=== PATIENT | male | born 1945 | race Caucasian/White ===

== ENCOUNTER 2018-03-09 10:20 | Emergency (ER) | payer MEDICARE ==
--- OUTSIDE RECORDS SUMMARY | 2018-03-09 10:29 | XMS REPORT ---
:1945 External Reference #:[id number] Author Organization [facility] Address [address] [place] [address] [place] [address] Phone [phone] Care Team Providers Name Role Phone Ric Leos MD Care Team Information Cigarette Tipper Unavailable Scott Feng MD Primary Care Physician Unavailable Payers Type Date Identification Numbers Payment Provider Subscriber Medicare Primary Policy Number: [id number] Medicare Priyank Garcia PayID: [id number] [address] [place] [address] [facility] Part B Effective: 2011 Policy Number: BS Facets Melly Garcia [id number] Expires: 2017 PayID: [id number] [address] [address] [place] [address] Medigap Part B Policy Number: [id number] [facility] Priyank Garcia PayID: [id number] [address] [place] [address] Problems Date Description Provider Status Onset: 07/05/2012 Immunological Findings Nonspec Other & Gary Olguin M.D. Active Unspec Onset: 07/05/2012 Multiple joint pain Gary Olguin M.D. Active Family History Date Family Member(s) Problem(s) Comments Father due to Cancer, Pancreatic () Mother due to Blood Clot Following Surgery () Social History Type Date Description Comments Marital Status Occupation Retired Cigarette Use Never Smoked Cigarettes Pt denies ever smoking pipe, cigar, or using chewing tobacco. ETOH Use Occasionally consumes alcohol Smoking Patient has never smoked Recreational Drug Use Denies Drug Use Daily Caffeine Consumes on average 3 cups of regular coffee per day Exercise Type/Frequency Exercises regularly 4 miles x day Allergies, Adverse Reactions, Alerts Date Description Reaction Status Severity Comments 07/05/2012 NKDA active 01/02/2014 Bee Sting swelling at site active per patient yellow jacket Medications Medication Date Status Form Strength Qnty SIG Indications Ordering Provider Lipitor Active Tablets 20mg 90tabs one tab Z95.2 Venkat Gan 015 by mouth Brand, every M.D. morning Amoxicillin Active Capsules 500mg 4caps 4 tablets I35.9 Venkat Gan 014 1 hour Brand, before M.D. dental work Multivitamins Active Capsules 30caps 1 capsule Other 013 kasandra;y Ordering Provider Aspirin Adult Active Chewtabs 81mg 30unit 1 po qd Other Low Strength 013 s Ordering Provider Enalapril Active Tablets 2.5mg 90tabs 1 by Venkat Gan Maleate 000 mouth Brand, every day M.D. Metamucil Active 1 tsp po Unknown 000 daily Magnesium Active Tablets 250mg 1 by Unknown 000 mouth every day Famotidine Hx Tablets 40mg 90tabs 1 by Unknown 014 - mouth every day 014 Ferrous Hx 324mg 1 tablet Unknown Gluconate 014 - po twice daily 014 Folic Acid Hx Tablets 1mg 30tabs 1 by Unknown 014 - mouth every day 015 Metoprolol Hx Tablets 25mg 180tab / Unknown Tartrate 014 - s tablet by mouth 015 twice a day Oxycodone-Acetam Hx Tablets 5-325mg 80tabs take 1 to Unknown inophen 014 - 2 tablets by mouth 014 every 6 to 8 hours as needed pain Enalapril Hx Tablets 5mg 1 po qd Other Maleate 013 - Ordering Provider 014 Vitamin C Hx Tablets 500mg 1 by Unknown 000 - mouth daily in 018 the winter DSS Hx Capsules 100mg 1 cap po Unknown 000 - twice daily 014 Prednisone Hx Tablets 10mg 30tabs 1 by Unknown 000 - mouth x 8 days 014 prior to Surgery Vital Signs Date Vital Result Comment 02/21/2018 Height 68 inches 5'8" Weight 177.00 lb w/o shoes Heart Rate 58 /min reg BP Systolic Sitting 125 mmHg LA reg cuff BP Diastolic Sitting 85 mmHg LA reg cuff BP Systolic Standing 120 mmHg LA reg cuff BP Diastolic Standing 80 mmHg LA reg cuff Respiratory Rate 18 /min BMI (Body Mass Index) 26.9 kg/m2 Ejection Fraction 50-55% 02/11/15 echo 02/22/2017 Height 68 inches 5'8" Weight 174.00 lb no shoes Heart Rate 60 /min BP Systolic Sitting 130 mmHg Rue reg cuff BP Diastolic Sitting 88 mmHg Rue reg cuff BP Systolic Standing 126 mmHg Rue reg cuff BP Diastolic Standing 84 mmHg Rue reg cuff Respiratory Rate 16 /min BMI (Body Mass Index) 26.5 kg/m2 Ejection Fraction 50-55% 02/11/2015-echo 02/22/2017 Height 68 inches 5'8" Ejection Fraction 50-55% 02/11/2015-echo 03/02/2016 Height 68 inches 5'8" Weight 178.00 lb no shoes Heart Rate 52 /min BP Systolic Sitting 144 mmHg Rue reg cuff BP Diastolic Sitting 90 mmHg Rue reg cuff BP Systolic Standing 140 mmHg Rue reg cuff BP Diastolic Standing 92 mmHg Rue reg cuff Respiratory Rate 16 /min BMI (Body Mass Index) 27.1 kg/m2 Ejection Fraction 50-55% 02/11/2015 02/27/2015 Height 68 inches 5'8" Weight 190.00 lb w/o shoes Heart Rate 62 /min reg BP Systolic Sitting 134 mmHg Rue, reg cuff BP Diastolic Sitting 94 mmHg Rue, reg cuff BP Systolic Standing 128 mmHg Rue BP Diastolic Standing 90 mmHg Rue Respiratory Rate 18 /min BMI (Body Mass Index) 28.9 kg/m2 Ejection Fraction 50-55% as of 02/11/15 echo 02/21/2014 Height 68 inches 5'8" Weight 181.00 lb with shoes Heart Rate 58 /min BP Systolic Sitting 150 mmHg Ra reg cuff BP Diastolic Sitting 100 mmHg Ra reg cuff BP Systolic Standing 150 mmHg Ra reg cuff BP Diastolic Standing 108 mmHg Ra reg cuff Respiratory Rate 16 /min BMI (Body Mass Index) 27.5 kg/m2 01/02/2014 Height 68 inches 5'8" Weight 181.00 lb with shoes Heart Rate 56 /min BP Systolic Sitting 142 mmHg La reg cuff BP Diastolic Sitting 96 mmHg La reg cuff BP Systolic Standing 140 mmHg La reg cuff BP Diastolic Standing 98 mmHg La reg cuff Respiratory Rate 16 /min BMI (Body Mass Index) 27.5 kg/m2 11/05/2013 Height 68 inches 5'8" Weight 177.00 lb Heart Rate 58 /min BP Systolic Sitting 138 mmHg left arm, reg cuff BP Diastolic Sitting 66 mmHg left arm, reg cuff BP Systolic Standing 114 mmHg left arm, reg cuff BP Diastolic Standing 62 mmHg left arm, reg cuff Respiratory Rate 16 /min BMI (Body Mass Index) 26.9 kg/m2 10/17/2013 Height 68 inches 5'8" Weight 175.00 lb Heart Rate 58 /min BP Systolic Sitting 144 mmHg LA reg cuff BP Diastolic Sitting 64 mmHg LA reg cuff BP Systolic Standing 138 mmHg LA BP Diastolic Standing 58 mmHg LA Respiratory Rate 12 /min BMI (Body Mass Index) 26.6 kg/m2 09/20/2013 Height 67.5 inches 5'7.50" Weight 177.00 lb Heart Rate 56 /min BP Systolic Sitting 124 mmHg Ra reg cuff BP Diastolic Sitting 70 mmHg Ra reg cuff BP Systolic Standing 130 mmHg Ra BP Diastolic Standing 70 mmHg Ra Respiratory Rate 18 /min BMI (Body Mass Index) 27.3 kg/m2 07/05/2012 Height 70 inches 5'10" Weight 176.00 lb Heart Rate 67 /min BP Systolic Sitting 126 mmHg BP Diastolic Sitting 68 mmHg BMI (Body Mass Index) 25.3 kg/m2 Results Test Date Test Result H/L Range Note Basic Metabolic Panel 12/21/2016 Sodium 140 mmol/L 133-145 Potassium 4.3 mmol/L 3.5-5.0 Chloride 105 mmol/L 101-111 Co2 Carbon Dioxide 29 mmol/L 22-32 Anion Gap 6 mmol/L 2-11 Glucose 90 mg/dL 70-100 Blood Urea Nitrogen 24 mg/dL 6-24 Creatinine 0.96 mg/dL 0.67-1.17 BUN/Creatinine Ratio 25.0 High 8-20 Calcium 9.5 mg/dL 8.6-10.3 Egfr Non- 77.7 >60 Egfr 99.9 >60 1 FLP/Alt Panel 04/19/2016 Alt (SGPT) 22 U/L 7-52 2 Lipid Profile (Trig/Chol/HDL) 04/19/2016 Triglycerides 60 mg/dL 3 Cholesterol 143 mg/dL 4 HDL Cholesterol 69.9 mg/dL 5 LDL Cholesterol 61 mg/dL 6 FLP/Alt Panel 05/06/2015 Alt (SGPT) 29 U/L 7-52 Lipid Profile (Trig/Chol/HDL) 05/06/2015 Triglycerides 66 mg/dL 7 Cholesterol 119 mg/dL 8 HDL Cholesterol 54.1 mg/dL 9 LDL Cholesterol 52 mg/dL 10 Pre Cath Panel 10/21/2013 Activated Partial Thrombo Time 31.8 seconds 24.0-36.1 Inr/Protime 10/21/2013 Inr 0.92 0.85-1.06 CBC Auto Diff 10/21/2013 White Blood Count 7.2 10^3/uL 4.8-10.8 Red Blood Count 4.53 10^6/uL 4.0-5.4 Hemoglobin 14.0 g/dL 14.0-18.0 Hematocrit 40 % Low 42-52 Mean Corpuscular Volume 89 fL 80-94 Mean Corpuscular Hemoglobin 31 pg 27-31 Mean Corpuscular HGB Conc 35 g/dL 31-36 Red Cell Distribution Width 14 % 10.5-15 Platelet Count 209 10^3/uL 150-450 Mean Platelet Volume 8 um3 7.4-10.4 Abs Neutrophils 5.0 10^3/uL 1.5-7.7 Abs Lymphocytes 1.4 10^3/uL 1.0-4.8 Abs Monocytes 0.5 10^3/uL 0-0.8 Abs Eosinophils 0.3 10^3/uL 0-0.6 Abs Basophils 0.1 10^3/uL 0-0.2 Abs Nucleated RBC 0 10^3/uL Granulocyte % 69.1 % 38-83 Lymphocyte % 19.6 % Low 25-47 Monocyte % 6.7 % 1-9 Eosinophil % 3.8 % 0-6 Basophil % 0.8 % 0-2 Nucleated Red Blood Cells % 0 Basic Metabolic Panel 10/21/2013 Sodium 137 mmol/L 133-145 Potassium 4.2 mmol/L 3.7-5.6 Chloride 104 mmol/L 101-111 Co2 Carbon Dioxide 28 mmol/L 22-32 Anion Gap 5 mmol/L 2-11 Glucose 90 mg/dL 70-100 Blood Urea Nitrogen 15 mg/dL 6-24 Creatinine 0.92 mg/dL 0.67-1.17 BUN/Creatinine Ratio 16.3 8-20 Calcium 9.1 mg/dL 8.6-10.3 Egfr Non- 82.3 >60 Egfr 105.9 >60 11 CBC With Manual Diff 07/05/2012 White Blood Count 9.7 10^3/uL 4.8-10.8 Red Blood Count 4.75 10^6/uL 4.0-5.4 Hemoglobin 15.1 g/dL 14.0-18.0 Hematocrit 43 % 42-52 Mean Corpuscular Volume 90 fL 80-94 Mean Corpuscular Hemoglobin 32 pg High 27-31 Mean Corpuscular HGB Conc 35 g/dL 31-36 Red Cell Distribution Width 14 % 10.5-15 Platelet Count 208 10^3/uL 150-450 Mean Platelet Volume 9 um3 7.4-10.4 Abs Neutrophils 7.4 10^3/uL 1.5-7.7 Abs Lymphocytes 1.5 10^3/uL 1.0-4.8 Abs Monocytes 0.6 10^3/uL 0-0.8 Abs Eosinophils 0.2 10^3/uL 0-0.6 Abs Basophils 0.1 10^3/uL 0-0.2 Abs Nucleated RBC 0.01 10^3/uL Neutrophil % 80 % 38-83 Band % 2 % 0-8 Lymphocytes % 13 % Low 25-47 Monocytes % 2 % 0-13 Eosinophils % 1 % 0-6 Basophil % 1 % 0-2 Reactive Lymph % 1 % 0-6 RBC Morphology Normal Normal Laboratory test finding 07/05/2012 C Reactive Protein < 0.5 mg/dL Less than 0.5 Comp Metabolic Panel 07/05/2012 Sodium 140 mmol/L 133-145 Potassium 4.7 mmol/L 3.5-5.0 Chloride 106 mmol/L 101-111 Co2 Carbon Dioxide 27.0 mmol/L 22-32 Anion Gap 7.0 mmol/L 2-11 Glucose 99 mg/dL 70-100 Blood Urea Nitrogen 19 mg/dL 6-24 Creatinine 1.00 mg/dL 0.50-1.40 BUN/Creatinine Ratio 19.0 8-20 Calcium 9.8 mg/dL 8.1-9.9 Total Protein 6.8 g/dL 6.2-8.1 Albumin 4.2 g/dL 3.2-5.2 Globulin 2.6 g/dL 2-4 Albumin/Globulin Ratio 1.6 1-3 Total Bilirubin 0.7 mg/dL 0.4-1.5 Alkaline Phosphatase 62 U/L 30-110 Alt 26 U/L 14-54 Ast 21 U/L 12-42 Egfr Non- 75.2 >60 Egfr 96.7 >60 12 Laboratory test finding 07/05/2012 Erythrocyte Sed Rate 12 mm/Hr 0-20 Jessica (Anti-Nuclear AB) Screen Negative Negative 13 Baudilio Screen Negative Negative 14 Anti Double Stranded Dna Negative Negative 15 1 Because ethnic data is not always readily available, this report includes an eGFR for both -Americans and non- Americans. The National Kidney Disease Education Program (NKDEP) does not endorse the use of the MDRD equation for patients that are not between the ages of 18 and 70, are , have extremes of body size, muscle mass, or nutritional status, or are non- or non-. According to the National Kidney Foundation, irrespective of diagnosis, the stage of the disease is based on the level of kidney function: Stage Description GFR(mL/min/1.73 m(2)) 1 Kidney damage with normal or decreased GFR 90 2 Kidney damage with mild decrease in GFR 60-89 3 Moderate decrease in GFR 30-59 4 Severe decrease in GFR 15-29 5 Kidney failure <15 (or dialysis) 2 FASTING soon 3 Desirable <150 Borderline high 150-199 High 200-499 Very High >500 4 Desirable <200 Borderline high 200-239 High >239 5 Low <40 Desirable: 40-60 High: >60 6 Desirable: <100 mg/dL Near Optimal: 100-129 mg/dL Borderline High: 130-159 mg/dL High: 160-189 mg/dL Very High: >189 mg/dL 7 Desirable <150 Borderline high 150-199 High 200-499 Very High >500 8 Desirable <200 Borderline high 200-239 High >239 9 Low <40 Desirable: 40-60 High: >60 10 Desirable: <100 mg/dL Near Optimal: 100-129 mg/dL Borderline High: 130-159 mg/dL High: 160-189 mg/dL Very High: >189 mg/dL 11 Because ethnic data is not always readily available, this report includes an eGFR for both -Americans and non- Americans. The National Kidney Disease Education Program (NKDEP) does not endorse the use of the MDRD equation for patients that are not between the ages of 18 and 70, are , have extremes of body size, muscle mass, or nutritional status, or are non- or non-. According to the National Kidney Foundation, irrespective of diagnosis, the stage of the disease is based on the level of kidney function: Stage Description GFR(mL/min/1.73 m(2)) 1 Kidney damage with normal or decreased GFR 90 2 Kidney damage with mild decrease in GFR 60-89 3 Moderate decrease in GFR 30-59 4 Severe decrease in GFR 15-29 5 Kidney failure <15 (or dialysis) 12 Because ethnic data is not always readily available, this report includes an eGFR for both -Americans and non- Americans. The National Kidney Disease Education Program (NKDEP) does not endorse the use of the MDRD equation for patients that are not between the ages of 18 and 70, are , have extremes of body size, muscle mass, or nutritional status, or are non- or non-. According to the National Kidney Foundation, irrespective of diagnosis, the stage of the disease is based on the level of kidney function: Stage Description GFR(mL/min/1.73 m(2)) 1 Kidney damage with normal or decreased GFR 90 2 Kidney damage with mild decrease in GFR 60-89 3 Moderate decrease in GFR 30-59 4 Severe decrease in GFR 15-29 5 Kidney failure <15 (or dialysis) 13 @Sample frozen by [id number] at 1725 on 07/05/12. 14 The above BAUDILIO screen is designed for the detection of antibodies to extractable nuclear antigen (BAUDILIO) in human serum. It is a combination test for the detection of antibodies to AP[employer]US [employer]ER, Sm, SS-A (Ro), and SS-B (La) nuclear antigens. 15 @Sample frozen by [id number] at 1725 on 07/05/12. Procedures Date CPT Code Description Status 02/21/2018 07127 EKG Tracing & Interpretation Completed 02/22/2017 44188 EKG Tracing & Interpretation Completed 03/02/2016 04097 EKG Tracing & Interpretation Completed 02/27/2015 02840 EKG Tracing & Interpretation Completed 02/11/2015 81775 ECHO Transthoracic, Real-Time 2D With Doppler And Color Completed Flow 02/19/2014 78101 ECHO Transthoracic, Real-Time 2D With Doppler And Color Completed Flow 01/02/2014 02461 EKG Tracing & Interpretation Completed 10/28/2013 58665 Left Heart Cath. Incl S/I Coronaries, Angio S/I V Gram Completed If Done 09/24/2013 59942 ECHO Transthoracic, Real-Time 2D With Doppler And Color Completed Flow 09/20/2013 26685 EKG Tracing & Interpretation Completed Encounters Type Date Location Provider CPT E/M Dx Office Visit 02/21/2018 [facility] Venkat Canela, 35948 Z95.2 10:30a [facility] M.DZia I34.0 I35.1 Office Visit 02/22/2017 10:30a [facility] Venkat Canela, 23319 I34.0 [facility] M.DZia Z95.2 I35.1 Office Visit 03/02/2016 11:30a [facility] Natanael Canela, 68531 I34.0 [facility] M.DZia Z95.2 I35.0 Office Visit 02/27/2015 9:45a [facility] Natanael Canela, 42598 I34.0 [facility] M.DZia Z95.2 Office Visit 02/21/2014 9:30a [facility] Natanael Canela, 46424 424.1 [facility] M.DiZa 424.0 Office Visit 01/02/2014 9:30a [facility] Natanael Canela, 03290 424.1 [facility] M.Malik 424.0 Office Visit 11/05/2013 1:00p [facility] Natanael Canela, 80438 424.1 [facility] M.DZia 424.0 Office Visit 10/17/2013 9:45a [facility] Natanael Canela, 92640 424.1 [facility] Constantino.Malik 424.0 Office Visit 09/20/2013 12:45p [facility] Natanael Canela, 67229 424.0 [facility] Constantino.Malik Office Visit 07/05/2012 11:00a [facility] Gary Olguin, 31107 795.79 Of Evelia Foley Plan of Care Future Appointment(s):03/12/2018 11:00 am - [facility] ECHO Schedule at [facility]2018 - Venkat Canela M.D.Z95.2 Presence of prosthetic heart valveNew Orders:EchocardiogramFollow up:1 yearI34.0 Nonrheumatic mitral (valve) [id number] Nonrheumatic aortic (valve) insufficiency
[2018-03-09 10:53] VITALS: BP 121/74
--- NOTE | 2018-03-09 12:21 | ED ---
Lower Extremity - HPI Summary HPI Summary: 72 yr old twisted his left ankle this morning on the ice, and inverted the foot , and has pain and swelling over the ankle left leg. Pain is minimal. Does hurt to bear weight. No numbness or tingling. No other complaints. No other injuries or complaints. - History of Current Complaint Chief Complaint: UCLowerExtremity Stated Complaint: S/P FALL LEFT ANKLE PAIN Time Seen by Provider: 03/09/18 11:00 Pain Intensity: 2 - Allergies/Home Medications Allergies/Adverse Reactions: Allergies Allergy/AdvReac Type Severity Reaction Status Date / Time No Known Allergies Allergy Verified 03/09/18 10:45 Home Medications: Home Medications Aspirin EC TAB* [Ecotrin EC Low Dose 81 MG*] 81 mg PO DAILY 03/09/18 [History Confirmed 03/09/18] Atorvastatin* [Lipitor*] 20 mg PO DAILY 03/09/18 [History Confirmed 03/09/18] Enalapril TAB* [Vasotec TAB*] 5 mg PO DAILY 03/09/18 [History Confirmed 03/09/18 ] Ibuprofen TAB* [Advil TAB*] 600 mg PO Q6H PRN 03/09/18 [History Confirmed ] Magnesium Oxide [Magnesium] 250 mg PO DAILY 03/09/18 [History Confirmed 03/09/18 ] Vitamin THERAPEUTIC TAB* [Theragran TAB*] 1 tab PO DAILY 03/09/18 [History Confirmed 03/09/18] PMH/Surg Hx/FS Hx/Imm Hx Endocrine/Hematology History: Denies: Hx Diabetes, Hx Thyroid Disease Cardiovascular History: Reports: Hx Hypertension Respiratory History: Denies: Hx Asthma, Hx Chronic Obstructive Pulmonary Disease (COPD) GI History: Denies: Hx Ulcer - Surgical History Surgery Procedure, Year, and Place: Aortic valve replacement 2013. Mitral valve repair 2004. Lower back abcess I&D Infectious Disease History: No Infectious Disease History: Denies: Hx Clostridium Difficile, Hx Hepatitis, Hx Human Immunodeficiency Virus (HIV), Hx of Known/Suspected MRSA, Hx Shingles, Hx Tuberculosis, Hx Known/ Suspected VRE, Hx Known/Suspected VRSA, History Other Infectious Disease, Traveled Outside the [place] in Last 30 Days - Family History Known Family History: Positive: None - Social History Alcohol Use: Occasionally Substance Use Type: Reports: None Smoking Status (MU): Never Smoked Tobacco Review of Systems Constitutional: Negative Positive: Other - left ankle pain and swelling. All Other Systems Reviewed And Are Negative: Yes Physical Exam Triage Information Reviewed: Yes Vital Signs On Initial Exam: Initial Vitals Temp Pulse Resp BP Pulse Ox 97.6 F 50 16 121/74 100 03/09/18 10:43 03/09/18 10:43 03/09/18 10:43 03/09/18 10:43 03/09/18 10:43 Vital Signs Reviewed: Yes Appearance: Positive: Well-Appearing, No Pain Distress Skin: Positive: Warm Head/Face: Positive: Normal Head/Face Inspection Eyes: Positive: EOMI Neck: Positive: Nontender Respiratory/Lung Sounds: Positive: Clear to Auscultation, Breath Sounds Present Cardiovascular: Positive: Pulses are Symmetrical in both Upper and Lower Extremities - intace DP and PT pulses left foot. Abdomen Description: Negative: Distended Musculoskeletal: Positive: Other - left ankle with STS over lateral and medial malleolus. He is not tender over the proximal fibula. No tenderness over the base of the 5th metatarsal. Neurological: Positive: Sensory/Motor Intact, Alert, Oriented to Person Place, Time, CN Intact II-III Psychiatric: Positive: Normal Procedures - Splinting Left Lower Extremity Location: left ankle, leg, foot Hand-Made Type: orthoglass Splint: posterior walking Pre-Proc Neuro Vasc Exam: normal Post-Proc Neuro Vasc Exam: normal Diagnostics - Vital Signs Vital Signs Temp Pulse Resp BP Pulse Ox 03/09/18 10:43 97.6 F 50 16 121/74 100 - Laboratory Lab Statement: Any lab studies that have been ordered have been reviewed, and results considered in the medical decision making process. - Radiology left ankle/tibfib Radiology Interpretation Completed By: Radiologist - Distal fibula fracture Lower Extremity Course/Dx - Course Course Of Treatment: 72 yr old with ankle fracture. He has been splinted by me. He has an appointment in an hour to see the orthopedic surgeon Dr Cook. The patient knows not to bear weight on the left leg. - Diagnoses Provider Diagnoses: Displaced fracture of lateral malleolus of fibula Discharge - Sign-Out/Discharge Documenting (check all that apply): Patient Departure All imaging exams completed and their final reports reviewed: Yes - Discharge Plan Condition: Good Disposition: HOME Patient Education Materials: Ankle Fracture (ED) Referrals: Scott Feng MD [Primary Care Provider] - Steve Cook MD [Medical Doctor] - (See Dr Cook at 130 pm today) - Billing Disposition and Condition Condition: GOOD Disposition: Home
== END 2018-03-09 12:33 | disposition home or self-care (01) ==
LOC: UCCORT 10:20
DX: S82.62XA Displaced fracture of lateral malleolus of left fibula, initial encounter for closed fracture (principal); X50.1XXA Overexertion from prolonged static or awkward postures, initial encounter; Y92.9 Unspecified place or not applicable; Z95.2 Presence of prosthetic heart valve
CPT/HCPCS: 99212; G0463

== ENCOUNTER 2018-08-03 13:05 | Emergency (ER) | payer MEDICARE ==
[2018-08-03 13:21] VITALS: BP 120/79
--- NOTE | 2018-08-03 13:36 | UC ---
Skin Complaint HPI - HPI Summary HPI Summary: tick bite left chest wall x 1 day tick was removed by the pt. no fever, no chills, no body aches, no joint pain , no rash - History of Current Complaint Chief Complaint: UCSkin Time Seen by Provider: 08/03/18 13:17 Stated Complaint: TICK Hx Obtained From: Patient Onset/Duration: Gradual Onset, Lasting Days, Still Present Timing: Constant Onset Severity: Moderate Current Severity: Moderate Pain Intensity: 2 Location: Other - left side chest wall Character: Redness Aggravating Factor(s): Nothing Alleviating Factor(s): Nothing Associated Signs & Symptoms: Negative: Nausea, Vomiting, Weakness, Fever, Chills , Tenderness, Red Streaks Related History: Insect Bite/Sting - tick bite - Allergy/Home Medications Allergies/Adverse Reactions: Allergies Allergy/AdvReac Type Severity Reaction Status Date / Time No Known Allergies Allergy Verified 03/09/18 10:45 PMH/Surg Hx/FS Hx/Imm Hx Cardiovascular History: Hypertension - Surgical History Surgical History: Yes Surgery Procedure, Year, and Place: Aortic valve replacement 2013. Mitral valve repair 2004. Lower back abcess I&D - Family History Known Family History: Positive: None Negative: Diabetes - Social History Alcohol Use: Occasionally Substance Use Type: None Smoking Status (MU): Never Smoked Tobacco - Immunization History Most Recent Tetanus Shot: 06/17/15 Review of Systems All Other Systems Reviewed And Are Negative: Yes Constitutional: Positive: Negative Eyes: Positive: Negative ENT: Positive: Negative Respiratory: Positive: Negative Is Patient Immunocompromised?: No Physical Exam Triage Information Reviewed: Yes Appearance: Well-Appearing, No Pain Distress, Well-Nourished Vital Signs: Initial Vital Signs Temp 98.6 F 08/03/18 13:16 Pulse 79 08/03/18 13:16 Resp 18 08/03/18 13:16 BP 120/79 08/03/18 13:16 Pulse Ox 98 08/03/18 13:16 Vital Signs Reviewed: Yes Eyes: Positive: Conjunctiva Clear ENT: Positive: Normal ENT inspection, Hearing grossly normal, Pharynx normal Neck: Positive: Supple, Nontender, No Lymphadenopathy Respiratory: Positive: Chest non-tender, Lungs clear, Normal breath sounds Cardiovascular Exam: Normal Cardiovascular: Positive: RRR, No Murmur, Pulses Normal Abdominal Exam: Normal Skin: Positive: Other - tick site left chest wall, tick was removed by the pt Course/Dx - Diagnoses Provider Diagnosis: Tick bite of chest wall Discharge - Sign-Out/Discharge Documenting (check all that apply): Patient Departure All imaging exams completed and their final reports reviewed: No Studies - Discharge Plan Condition: Stable Disposition: HOME Prescriptions: DOXYcycline CAP(*) [DOXYcycline 100MG CAP(*)] 200 mg PO DAILY #2 cap Patient Education Materials: Tick Bite (ED) Referrals: Scott Feng MD [Primary Care Provider] - If Needed - Billing Disposition and Condition Condition: STABLE Disposition: Home
== END 2018-08-03 13:40 | disposition home or self-care (01) ==
LOC: UCCORT 13:05
DX: S20.302A Unspecified superficial injuries of left front wall of thorax, initial encounter (principal); I10 Essential (primary) hypertension; W57.XXXA Bitten or stung by nonvenomous insect and other nonvenomous arthropods, initial encounter; Y92.9 Unspecified place or not applicable
CPT/HCPCS: 99212; G0463